=== PATIENT | male | born 1975 | race Caucasian/White ===

== ENCOUNTER 2017-07-16 11:28 | Inpatient (IN) | payer OTHER ==
[2017-07-16 13:07] VITALS: BMI 33.0
--- NOTE | 2017-07-16 13:18 | HP ---
Admission [facility] - [facility] Chief Complaint: I AM HERE FOR REHAB FROM ALCOHOL,HEROIN ABUSED,MMTP 80 MGS/DAY,LAST MEDICATED Allergies/Adverse Reactions: Allergies Allergy/AdvReac Type Severity Reaction Status Date / Time No Known Allergies Allergy Verified 07/16/17 13:03 History of Present Illness: THIS 41 YEARS OLD MALE WITH ALCOHOL,COCAINE DEPENDENCE,HEROIN ABUSED,MMTP 80 MGS /DAY LAST MEDICATED 07/15/17 NICOTINE DEPENDENCE LAST TREATMENT [facility] FROM 07/10/17 TO 07/13/17 NO SIGNIFICANT PERIOD OF SOBRIETY DEPRESSION,INSOMNIA Exam Limitations: No Limitations - Ebola screening Have you traveled outside of the country in the last 21 days: No (N) Have you had contact with anyone from an Ebola affected area: No Have you been sick,other than usual withdrawal symptoms: No Do you have a fever: No - Review of Systems Constitutional: No Symptoms Reported EENT: reports: No Symptoms Reported Respiratory: reports: No Symptoms reported Cardiac: reports: No Symptoms Reported GI: reports: No Symptoms Reported : reports: No Symptoms Reported Musculoskeletal: reports: No Symptoms Reported Integumentary: reports: No Symptoms Reported Neuro: reports: No Symptoms reported Endocrine: reports: No Symptoms Reported Hematology: reports: No Symptoms Reported Psychiatric: reports: Depressed (INSOMNIA) Patient History - Patient Medical History Hx Anemia: No Hx Asthma: No Hx Chronic Obstructive Pulmonary Disease (COPD): No Hx Cancer: No Hx Cardiac Disorders: No Hx Congestive Heart Failure: No Hx Hypertension: Yes (NO MED) Hx Hypercholesterolemia: No Hx Pacemaker: No HX Cerebrovascular Accident: No Hx Seizures: No Hx Dementia: No Hx Diabetes: No Hx Gastrointestinal Disorders: No Hx Liver Disease: No Hx Genitourinary Disorders: No Hx Sexually Transmitted Disorders: No Hx Renal Disease (ESRD): No Hx Thyroid Disease: No Hx Human Immunodeficiency Virus (HIV): No (LAST 2017 NEGATIVE) Hx Hepatitis C: No Hx Depression: Yes (INSOMNIA) Hx Suicide Attempt: No Hx Bipolar Disorder: No Hx Schizophrenia: No Other Medical History: NO SCICIDAL,NO HOMICIDAL - Patient Surgical History Past Surgical History: No - Smoking Cessation Smoking history: Current every day smoker Have you smoked in the past 12 months: Yes Aproximately how many cigarettes per day: 10 Cigars Per Day: 0 Hx Chewing Tobacco Use: No Initiated information on smoking cessation: Yes 'Breaking Loose' booklet given: 07/16/17 - Substance & Tx. History Hx Alcohol Use: Yes Hx Substance Use: Yes Substance Use Type: Alcohol, Cocaine, Heroin Hx Substance Use Treatment: Yes ([facility] 07/10/17 TO 07/13/17) - Substances Abused Heroin Route: Injection Frequency: Daily Amount used: 10 BAGS Age of first use: 18 Date of Last Use: 07/10/17 Cocaine Route: Injection Frequency: Daily Amount used: 1-2 GRAM Age of first use: 18 Date of Last Use: 07/10/17 Alcohol Route: Oral Frequency: 3-6 times per week Amount used: 2 6PKS Age of first use: 18 Date of Last Use: 07/10/17 Family Disease History - Family Disease History Family History: Denies Family Disease History: Diabetes: Mother Admission Physical Exam [facility] - Vital Signs Vital Signs: Vital Signs - 24 hr 07/16/17 13:06 Temperature 96.4 F L Pulse Rate 76 Respiratory 20 Rate Blood Pressure 155/94 - Physical General Appearance: Yes: Within Normal Limits HEENTM: Yes: Within Normal Limits, Normal ENT Inspection, Normocephalic, IVANA, Pharynx Normal, Tm's normal Respiratory: Yes: Lungs Clear, Normal Breath Sounds, No Respiratory Distress Neck: Yes: Within Normal Limits, Supple, Trachea in good position Breast: Yes: Within Normal Limits Cardiology: Yes: Within Normal Limits, Regular Rhythm, Regular Rate, S1, S2 Abdominal: Yes: Within Normal Limits, Normal Bowel Sounds, Non Tender, Soft Genitourinary: Yes: Within Normal Limits Back: Yes: Within Normal Limits Musculoskeletal: Yes: Within Normal Limits, full range of Motion Extremities: Yes: Within Normal Limits, Normal Range of Motion, Tremors Neurological: Yes: directory clerk II-XII NML intact, Fully Oriented, Alert, Motor Strength 5/5 Integumentary: Yes: Within Normal Limits Lymphatic: Yes: Within Normal Limits - Diagnostic (1) Alcohol dependence Current Visit: Yes Status: Acute (2) Opioid dependence Current Visit: Yes Status: Acute (3) Cocaine dependence Current Visit: Yes Status: Acute (4) Methadone maintenance therapy patient Current Visit: Yes Status: Acute (5) Depression Current Visit: Yes Status: Acute (6) Insomnia Current Visit: Yes Status: Acute (7) Nicotine dependence Current Visit: Yes Status: Acute Cleared for Admission [facility] - Detox or Rehab Claeared for Rehab Admission: Yes [facility] Breath Alcohol Content Breath Alcohol Content: 0 Urine Drug Screen - Results Drug Screen Negative: No Urine Drug Screen Results: BZO-Benzodiazepines, MTD-Methadone Inpatient Rehab Admission - Initial Determination Are CD services needed?: Yes Free of communicable disease: Yes Not in need of hospitalization: Yes - Rehab Admission Criteria Previous failed treatment: Yes Poor recovery environment: Yes Comorbidities: Yes Lacks judgement: No Patient is meeting Inpatient Rehab admission criteria:: Yes
[2017-07-16] MEDS ORDERED: guaiFENesin/D-METHORPHAN HB 10 ML UNIT-DOSE CUPS PO PRN (13:29)
[2017-07-16] MEDS ORDERED: LOPERAMIDE HCL 2 MG CAPSULE PO PRN (13:29)
[2017-07-16] MEDS ORDERED: MAGNESIUM CITRATE 300 ML BOTTLE PO PRN (13:29)
[2017-07-16] MEDS ORDERED: P-EPHED 60MG/TRIPROLIDI 2.5MG TABLET PO PRN (13:29)
[2017-07-16] MEDS ORDERED: MAG HYDROX/AL HYDROX/SIMETH 30 ML UNIT-DOSE CUP PO PRN (13:29)
[2017-07-16] MEDS ORDERED: IBUPROFEN 400 MG TABLET (FP) PO PRN (13:29)
[2017-07-16] MEDS ORDERED: ACETAMINOPHEN 325 MG TABLET (FP) PO PRN (13:29)
[2017-07-16] MEDS ORDERED: MENTHOL/PHENOL 1 EACH UD MM PRN (13:29)
[2017-07-16] MEDS: METHADONE HCL 40 MG DISPERSABLE TABLET PO SCH (16:12)
[2017-07-16] MEDS: NICOTINE 21 MG/24 HOURS TOPICAL PATCH TD SCH (16:12)
[2017-07-16] MEDS ORDERED: TUBERCULIN PPD 5 TU/0.1ML VIAL ID ONE ×2 (16:17→19:52)
[2017-07-16 17:03] LABS: HEMATOCRIT 46.5 % (35.4-49); HEMOGLOBIN 15.9 GM/dL (11.7-16.9); MCH 30.4 pg (25.7-33.7); MCHC 34.1 g/dl (32.0-35.9); MEAN CELL VOLUME 89.2 fl (80-96); MEAN PLT VOLUME 9.5 fl (7.5-11.1); PLATELET COUNT 184 K/MM3 (134-434); RBC 5.21 M/mm3 (4.00-5.60); RDW 14.1 % (11.9-15.9)
[2017-07-16 17:23] LABS: CHLORIDE 101 mmol/L (98-107); POTASSIUM 3.8 mmol/L (3.5-5.1); SODIUM 136 mmol/L (136-145)
[2017-07-16 17:35] LABS: ALBUMIN 3.9 g/dl (3.4-5.0); ALK PHOS 63 U/L (45-117); ANION GAP 11 (8-16); BILIRUBIN,TOTAL 0.9 mg/dL (0.2-1.0); BLOOD UREA NITROGEN 19 mg/dL (7-18); CALCIUM 8.8 mg/dL (8.5-10.1); CO2 24 mmol/L (21-32); CREATININE 0.9 mg/dL (0.7-1.3); SGOT/AST 222 U/L (15-37); SGPT/ALT 124 U/L (12-78); TOT PROT 7.3 g/dl (6.4-8.2)
[2017-07-16 18:19] LABS: SICKLE CELL SCREEN NEGATIVE (NEGATIVE)
[2017-07-16] MEDS: hydrOXYzine PAMOATE 50 MG CAPSULE (FP) PO PRN (21:05)
[2017-07-16] MEDS: THIAMINE HCL 100 MG TABLET (FP) PO SCH (21:05)
[2017-07-16 21:07] LABS: URINE APPEARANCE CLEAR; URINE BILIRUBIN NEGATIVE (NEGATIVE); URINE BLOOD NEGATIVE (NEGATIVE); URINE COLOR YELLOW; URINE GLUCOSE (UA) NEGATIVE (NEGATIVE); URINE KETONE NEGATIVE (NEGATIVE); URINE LEUK ESTERASE NEGATIVE (NEGATIVE); URINE NITRITE NEGATIVE (NEGATIVE); URINE PROTEIN NEGATIVE (NEGATIVE); URINE UROBILINOGEN NEGATIVE mg/dL (0.2-1.0)
[2017-07-17] MEDS: METHADONE HCL 40 MG DISPERSABLE TABLET PO SCH (06:39)
--- NOTE | 2017-07-17 08:42 | EKG ---
Test Reason : Blood Pressure : / mmHG Vent. Rate : 081 BPM Atrial Rate : 081 BPM P-R Int : 152 ms QRS Dur : 090 ms QT Int : 400 ms P-R-T Axes : 060 005 007 degrees QTc Int : 464 ms NORMAL SINUS RHYTHM MINIMAL VOLTAGE CRITERIA FOR LVH, MAY BE NORMAL VARIANT BORDERLINE ECG NO PREVIOUS ECGS AVAILABLE Confirmed by SEVEN OMALLEY MD ([id number]) on 07/17/2017 8:42:44 AM Referred By: Confirmed By:SEVEN OMALLEY MD
--- NOTE | 2017-07-17 09:18 | HP ---
Psychiatrist Admission - Data Date of interview: 07/17/17 Admission source: Outreach Identifying data: This is the first [facility] admission for this 41 years old single male, father of a 21 years old daughter, unemployed on SSI, living with family Medical History: Significant for hypertension. Patient is on methadone 80mg/ day. Smokes 10 cigarettes daily Psychiatric History: Reports that his first psychiatric contact was at age 16 when he was observed for 3 days at [facility] ED for suicidal attempt by cutting his wrist in the context of a romantic relationship(break up with a girlfriend). In late 2008, he was evaluated for depression and hearing voices at [facility] in [place], [place]. He was then diagnosed with MDD and started on Zoloft. He is still attending that clinic in [place] and he is currently on Zoloft 100 mg po daily and Perphenazine 8 mg po BID. He also claims being on Ambien but pharmacy claim did not bear that. Denies history of previous psychiatric hospitalization or suicidal attempt. at present, denies feeling experiencing psychotic, manic or depressive symptoms as well as S/H ideations. However, reports sleeping poorly and he appreciates the fact he is given Vistaril for his insomnia Physical/Sexual Abuse/Trauma History: Denies history of emotional, physical or sexual abuse as well as DV relationship. No service Additional Comment: Reports history of multiple arrests including 4 felony convictions. Not on probation/parole currently. Claims his parole in 2009. No active case pending Vital Signs: Vital Signs - 24 hr 07/16/17 07/16/17 07/17/17 13:06 16:05 00:35 Temperature 96.4 F L 98.0 F Pulse Rate 76 81 Respiratory 20 20 18 Rate Blood Pressure 155/94 128/84 07/17/17 07/17/17 03:30 06:47 Temperature 98.6 F Pulse Rate 62 Respiratory 18 18 Rate Blood Pressure 127/86 Allergies/Adverse Reactions: Allergies Allergy/AdvReac Type Severity Reaction Status Date / Time No Known Allergies Allergy Verified 07/16/17 13:03 Date of last physical exam: 07/16/17 Concur with the findings of this exam: Yes (Currently atteds [facility]) - Substance Abuse/Tx History Hx Alcohol Use: Yes Hx Substance Use: Yes Substance Use Type: Alcohol (Started drinking alcohol at age 18, consumes 2x 6pk 3-6 times weekly. Last drank on 07/10/17), Cocaine (Started using cocaine at age 18, consumes 1-2 grams daily. Last used on 07/10/17), Heroin (Started using herin at age 18, consumes 10 bags daily. Last used on 07/10/17) Hx Substance Use Treatment: Yes (3 previous inpt detox & one inpt rehab admissions. 1st inpt treatment @ [facility]) Mental Status Exam - Mental Status Exam Alert and Oriented to: Time, Place, Person Cognitive Function: Fair Patient Appearance: Well Groomed Mood: Hopeful, Euthymic Patient Behavior: Cooperative Speech Pattern: Clear Voice Loudness: Normal Thought Process: Intact, Goal Oriented Hallucinations: None, Denies Suicidal Ideation: Denies Homicidal Ideation: Denies Insight/Judgement: Fair Sleep: Poorly Appetite: Good Muscle strength/Tone: Normal Gait/Station: Normal Psychiatric Findings - Problem List (Wells 1, 2,3) (1) Alcohol dependence Current Visit: Yes Status: Acute (2) Opioid dependence Current Visit: Yes Status: Acute (3) Cocaine dependence Current Visit: Yes Status: Acute (4) Opioid dependence on agonist therapy Current Visit: Yes Status: Chronic (5) Nicotine dependence Current Visit: Yes Status: Chronic (6) Severe episode of recurrent major depressive disorder, with psychotic features Current Visit: Yes Status: Chronic (7) Substance induced mood disorder Current Visit: Yes Status: Acute (8) HTN (hypertension) Current Visit: Yes Status: Chronic - Initial Treatment Plan Initial Treatment Plan: 1) Continue Zoloft 100 mg po daily and Trilafon 8 mg po BID. 2) Monitor progress
[2017-07-17] MEDS: PRENATAL VITAMINS W/ FOLIC ACID TABLET (FP) PO SCH (09:54)
[2017-07-17] MEDS: hydrOXYzine PAMOATE 50 MG CAPSULE (FP) PO PRN (09:55)
[2017-07-17] MEDS: NICOTINE 21 MG/24 HOURS TOPICAL PATCH TD SCH (09:55)
[2017-07-17] MEDS: SERTRALINE HCL 50 MG TABLET (FP) PO SCH (10:49)
[2017-07-17] MEDS: PERPHENAZINE 4 MG TABLET PO SCH ×2 (10:50→21:09)
[2017-07-17] MEDS ORDERED: PNEUMOCOCCAL 23 VACCINE 0.5 ML VIAL IM ONE (12:00)
[2017-07-17] MEDS ORDERED: PNEUMOC 13-VAL CONJ-DIP CRM/PF 0.5 ML DISP.SYRIN IM ONE (12:00)
[2017-07-17] MEDS ORDERED: FLU VACCINE QUAD 60 MCG/0.5 ML (MDV 17-18) IM ONE (12:00)
--- NOTE | 2017-07-17 17:12 | PN ---
S Progress Note Note: Patient c/o dry skin on both feet. Vital Signs Temperature 98.6 F 07/17/17 06:47 Pulse Rate 62 07/17/17 06:47 Respiratory Rate 18 07/17/17 06:47 Blood Pressure 127/86 07/17/17 06:47 O2 Sat by Pulse Oximetry (%) Patient AOx 3 in no parent distress Skin integrity intact with moderate dryness on both feet, nails intact negative neuro symptoms Patient ambulating in the unit without difficulties Plan: increase fluids Aveno soap Skin hygiene discuss Apply A & D oint to both feet
[2017-07-17] MEDS: VITAMINS A AND D TOPICAL OINTMENT 60 GM TUBE TP SCH (18:02)
[2017-07-17] MEDS: THIAMINE HCL 100 MG TABLET (FP) PO SCH (21:09)
[2017-07-17 21:32] LABS: ALBUMIN 3.8 g/dl (3.4-5.0); ANION GAP 5 (8-16); BILIRUBIN,TOTAL 0.3 mg/dL (0.2-1.0); BLOOD UREA NITROGEN 12 mg/dL (7-18); CALCIUM 8.3 mg/dL (8.5-10.1); CHLORIDE 106 mmol/L (98-107); CO2 30 mmol/L (21-32); CREATININE 0.9 mg/dL (0.7-1.3); GLUCOSE,RANDOM 130 mg/dL (74-106); SGOT/AST 40 U/L (15-37); SGPT/ALT 31 U/L (12-78); SODIUM 141 mmol/L (136-145); TOT PROT 7.2 g/dl (6.4-8.2)
[2017-07-17 21:33] LABS: ALK PHOS 69 U/L (45-117)
[2017-07-17 22:04] LABS: SICKLE CELL SCREEN NEGATIVE (NEGATIVE)
[2017-07-17 22:06] LABS: HEMATOCRIT 41.3 % (35.4-49); HEMOGLOBIN 13.6 GM/dL (11.7-16.9); MCH 31.8 pg (25.7-33.7); MCHC 32.9 g/dl (32.0-35.9); MEAN CELL VOLUME 96.6 fl (80-96); MEAN PLT VOLUME 10.2 fl (7.5-11.1); PLATELET COUNT 165 K/MM3 (134-434); RBC 4.27 M/mm3 (4.00-5.60); WHITE BLOOD COUNT 5.4 K/mm3 (4.0-10.0)
[2017-07-17 22:29] LABS: GLUCOSE,RANDOM 106 mg/dL (74-106)
[2017-07-17 22:33] LABS: WHITE BLOOD COUNT 9.4 K/mm3 (4.0-10.0)
--- NOTE | 2017-07-17 22:49 | PN ---
[facility] Progress Note Note: informed by lab grounds crew supervisor brianna HIV STATUS STILL PENDING DUE TO WRONG SPECIMEN PROCESSED. CURRENT RESULTS IS AN ERROR. HIV TESTING RESUBMITTED
[2017-07-18] MEDS: VITAMINS A AND D TOPICAL OINTMENT 60 GM TUBE TP SCH ×4 (00:08→18:00)
[2017-07-18] MEDS ORDERED: PT OWN MED DRAWER 7, Y5N ONE (02:10)
[2017-07-18] MEDS: METHADONE HCL 40 MG DISPERSABLE TABLET PO SCH (06:22)
[2017-07-18] MEDS: PRENATAL VITAMINS W/ FOLIC ACID TABLET (FP) PO SCH (09:31)
[2017-07-18] MEDS: PERPHENAZINE 4 MG TABLET PO SCH ×2 (09:31→21:07)
[2017-07-18] MEDS: SERTRALINE HCL 50 MG TABLET (FP) PO SCH (09:31)
[2017-07-18] MEDS: NICOTINE 21 MG/24 HOURS TOPICAL PATCH TD SCH (09:32)
[2017-07-18 09:57] LABS: RPR NONREACTIVE (NONREACTIVE)
[2017-07-18] MEDS: THIAMINE HCL 100 MG TABLET (FP) PO SCH (21:07)
[2017-07-19] MEDS: VITAMINS A AND D TOPICAL OINTMENT 60 GM TUBE TP SCH ×4 (00:21→17:27)
[2017-07-19] MEDS: METHADONE HCL 40 MG DISPERSABLE TABLET PO SCH (06:37)
[2017-07-19] MEDS: SERTRALINE HCL 50 MG TABLET (FP) PO SCH (09:37)
[2017-07-19] MEDS: NICOTINE 21 MG/24 HOURS TOPICAL PATCH TD SCH (09:37)
[2017-07-19] MEDS: PERPHENAZINE 4 MG TABLET PO SCH ×2 (09:37→21:06)
[2017-07-19] MEDS: PRENATAL VITAMINS W/ FOLIC ACID TABLET (FP) PO SCH (09:37)
--- NOTE | 2017-07-19 15:49 | PN ---
[facility] Progress Note Note: received nurse call that the patient has positive ppd needs chest x ray
[2017-07-19] MEDS: THIAMINE HCL 100 MG TABLET (FP) PO SCH (21:06)
[2017-07-20] MEDS: VITAMINS A AND D TOPICAL OINTMENT 60 GM TUBE TP SCH ×5 (00:06→23:12)
[2017-07-20] MEDS: METHADONE HCL 40 MG DISPERSABLE TABLET PO SCH (06:11)
[2017-07-20] MEDS: NICOTINE 21 MG/24 HOURS TOPICAL PATCH TD SCH (09:49)
[2017-07-20] MEDS: PRENATAL VITAMINS W/ FOLIC ACID TABLET (FP) PO SCH (09:50)
[2017-07-20] MEDS: SERTRALINE HCL 50 MG TABLET (FP) PO SCH (09:50)
[2017-07-20] MEDS: PERPHENAZINE 4 MG TABLET PO SCH ×2 (10:49→21:05)
[2017-07-20] MEDS: THIAMINE HCL 100 MG TABLET (FP) PO SCH (21:05)
[2017-07-21] MEDS: METHADONE HCL 40 MG DISPERSABLE TABLET PO SCH (06:15)
[2017-07-21] MEDS: VITAMINS A AND D TOPICAL OINTMENT 60 GM TUBE TP SCH ×3 (06:15→17:38)
[2017-07-21] MEDS: NICOTINE 21 MG/24 HOURS TOPICAL PATCH TD SCH (09:45)
[2017-07-21] MEDS: SERTRALINE HCL 50 MG TABLET (FP) PO SCH (09:45)
[2017-07-21] MEDS: PERPHENAZINE 4 MG TABLET PO SCH ×2 (09:45→21:11)
[2017-07-21] MEDS: PRENATAL VITAMINS W/ FOLIC ACID TABLET (FP) PO SCH (09:45)
--- NOTE | 2017-07-21 13:43 | PN ---
[facility] Progress Note Note: CXR neg active tb
[2017-07-21] MEDS: THIAMINE HCL 100 MG TABLET (FP) PO SCH (21:11)
[2017-07-22] MEDS: VITAMINS A AND D TOPICAL OINTMENT 60 GM TUBE TP SCH ×4 (00:01→17:59)
[2017-07-22] MEDS: METHADONE HCL 40 MG DISPERSABLE TABLET PO SCH (06:19)
[2017-07-22] MEDS: NICOTINE 21 MG/24 HOURS TOPICAL PATCH TD SCH (09:37)
[2017-07-22] MEDS: SERTRALINE HCL 50 MG TABLET (FP) PO SCH (09:37)
[2017-07-22] MEDS: PERPHENAZINE 4 MG TABLET PO SCH ×2 (09:38→21:07)
[2017-07-22] MEDS: PRENATAL VITAMINS W/ FOLIC ACID TABLET (FP) PO SCH (09:38)
[2017-07-22] MEDS: THIAMINE HCL 100 MG TABLET (FP) PO SCH (21:07)
[2017-07-23] MEDS: VITAMINS A AND D TOPICAL OINTMENT 60 GM TUBE TP SCH ×4 (00:45→17:37)
[2017-07-23] MEDS: METHADONE HCL 40 MG DISPERSABLE TABLET PO SCH (06:14)
[2017-07-23] MEDS: SERTRALINE HCL 50 MG TABLET (FP) PO SCH (10:12)
[2017-07-23] MEDS: PRENATAL VITAMINS W/ FOLIC ACID TABLET (FP) PO SCH (10:12)
[2017-07-23] MEDS: NICOTINE 21 MG/24 HOURS TOPICAL PATCH TD SCH (10:12)
[2017-07-23] MEDS: PERPHENAZINE 4 MG TABLET PO SCH ×2 (10:12→21:15)
[2017-07-23] MEDS: THIAMINE HCL 100 MG TABLET (FP) PO SCH (21:15)
[2017-07-24] MEDS: VITAMINS A AND D TOPICAL OINTMENT 60 GM TUBE TP SCH ×5 (00:13→23:52)
[2017-07-24] MEDS: METHADONE HCL 40 MG DISPERSABLE TABLET PO SCH (06:12)
[2017-07-24] MEDS: PERPHENAZINE 4 MG TABLET PO SCH ×2 (09:36→21:11)
[2017-07-24] MEDS: NICOTINE 21 MG/24 HOURS TOPICAL PATCH TD SCH (09:36)
[2017-07-24] MEDS: SERTRALINE HCL 50 MG TABLET (FP) PO SCH (09:37)
[2017-07-24] MEDS: PRENATAL VITAMINS W/ FOLIC ACID TABLET (FP) PO SCH (09:37)
[2017-07-24] MEDS ORDERED: POLYETHYLENE GLYCOL 3350 119 GM BTL PO ONE (15:00)
[2017-07-24] MEDS: THIAMINE HCL 100 MG TABLET (FP) PO SCH (21:11)
[2017-07-25] MEDS: METHADONE HCL 40 MG DISPERSABLE TABLET PO SCH (06:25)
[2017-07-25] MEDS: VITAMINS A AND D TOPICAL OINTMENT 60 GM TUBE TP SCH ×3 (06:27→18:00)
[2017-07-25] MEDS: PRENATAL VITAMINS W/ FOLIC ACID TABLET (FP) PO SCH (09:40)
[2017-07-25] MEDS: NICOTINE 21 MG/24 HOURS TOPICAL PATCH TD SCH (09:40)
[2017-07-25] MEDS: SERTRALINE HCL 50 MG TABLET (FP) PO SCH (09:40)
[2017-07-25] MEDS: PERPHENAZINE 4 MG TABLET PO SCH ×2 (09:40→21:13)
[2017-07-25] MEDS: POLYETHYLENE GLYCOL 3350 119 GM BTL PO SCH (09:41)
[2017-07-25] MEDS: MAGNESIUM HYDROX 2400MG/30ML ORAL SUSPENSION 30 ML CUP PO PRN (17:59)
[2017-07-25] MEDS: THIAMINE HCL 100 MG TABLET (FP) PO SCH (21:13)
[2017-07-26] MEDS: VITAMINS A AND D TOPICAL OINTMENT 60 GM TUBE TP SCH ×4 (00:50→17:32)
[2017-07-26] MEDS: METHADONE HCL 40 MG DISPERSABLE TABLET PO SCH (06:16)
[2017-07-26] MEDS: PRENATAL VITAMINS W/ FOLIC ACID TABLET (FP) PO SCH (09:50)
[2017-07-26] MEDS: NICOTINE 21 MG/24 HOURS TOPICAL PATCH TD SCH (09:51)
[2017-07-26] MEDS: SERTRALINE HCL 50 MG TABLET (FP) PO SCH (09:51)
[2017-07-26] MEDS: PERPHENAZINE 4 MG TABLET PO SCH ×2 (09:51→21:09)
[2017-07-26] MEDS: POLYETHYLENE GLYCOL 3350 119 GM BTL PO SCH (09:53)
[2017-07-26] MEDS: THIAMINE HCL 100 MG TABLET (FP) PO SCH (21:09)
[2017-07-27] MEDS: VITAMINS A AND D TOPICAL OINTMENT 60 GM TUBE TP SCH ×4 (01:02→19:01)
[2017-07-27] MEDS: METHADONE HCL 40 MG DISPERSABLE TABLET PO SCH (06:21)
[2017-07-27] MEDS: SERTRALINE HCL 50 MG TABLET (FP) PO SCH (09:44)
[2017-07-27] MEDS: PERPHENAZINE 4 MG TABLET PO SCH ×2 (09:45→21:25)
[2017-07-27] MEDS: PRENATAL VITAMINS W/ FOLIC ACID TABLET (FP) PO SCH (09:45)
[2017-07-27] MEDS: POLYETHYLENE GLYCOL 3350 119 GM BTL PO SCH (09:45)
[2017-07-27] MEDS: NICOTINE 21 MG/24 HOURS TOPICAL PATCH TD SCH (09:45)
[2017-07-27] MEDS: THIAMINE HCL 100 MG TABLET (FP) PO SCH (21:25)
[2017-07-28] MEDS: VITAMINS A AND D TOPICAL OINTMENT 60 GM TUBE TP SCH ×4 (00:40→18:23)
[2017-07-28] MEDS: METHADONE HCL 40 MG DISPERSABLE TABLET PO SCH (06:02)
[2017-07-28] MEDS: MAGNESIUM HYDROX 2400MG/30ML ORAL SUSPENSION 30 ML CUP PO PRN (08:30)
[2017-07-28] MEDS: PERPHENAZINE 4 MG TABLET PO SCH ×2 (09:57→21:06)
[2017-07-28] MEDS: PRENATAL VITAMINS W/ FOLIC ACID TABLET (FP) PO SCH (09:57)
[2017-07-28] MEDS: SERTRALINE HCL 50 MG TABLET (FP) PO SCH (09:57)
[2017-07-28] MEDS: NICOTINE 21 MG/24 HOURS TOPICAL PATCH TD SCH (09:57)
[2017-07-28] MEDS: POLYETHYLENE GLYCOL 3350 119 GM BTL PO SCH (09:59)
[2017-07-28] MEDS: THIAMINE HCL 100 MG TABLET (FP) PO SCH (21:06)
[2017-07-29] MEDS: VITAMINS A AND D TOPICAL OINTMENT 60 GM TUBE TP SCH ×2 (01:20→06:37)
[2017-07-29] MEDS: METHADONE HCL 40 MG DISPERSABLE TABLET PO SCH (06:36)
[2017-07-29 06:43] VITALS: BP 113/74; PULSE 69; TEMP 98
[2017-07-29] MEDS: PRENATAL VITAMINS W/ FOLIC ACID TABLET (FP) PO SCH (09:50)
[2017-07-29] MEDS: PERPHENAZINE 4 MG TABLET PO SCH (09:50)
[2017-07-29] MEDS: SERTRALINE HCL 50 MG TABLET (FP) PO SCH (09:51)
[2017-07-29] MEDS: POLYETHYLENE GLYCOL 3350 119 GM BTL PO SCH (09:51)
[2017-07-29] MEDS: NICOTINE 21 MG/24 HOURS TOPICAL PATCH TD SCH (09:51)
--- NOTE | 2017-07-29 10:37 | PN ---
Psychiatric Progress Note Vital Signs: Vital Signs Period Temp Pulse Resp BP Sys/Bright Pulse Ox Last 24 Hr 98.0 F 69 18-18 113/74 Date of Session: 07/29/17 Chief Complaint:: discharge visit HPI: Patient has addressed alcohol, opioid, cocaine, nicotine dependence comorbid MDD, severe with psychosis. ROS: Hypertension medically managed. Patient is on methadone 80mg/day Current Medications: Active Medications Generic Name Dose Route Start Last Admin Trade Name Freq PRN Reason Stop Dose Admin Al Hydroxide/Mg Hydroxide 30 ml 07/16/17 13:29 Mylanta Oral Suspension - PO Q6H PRN DYSPEPSIA Eucalyptus/Menthol/Phenol/Sorbitol 1 each 07/16/17 13:29 Cepastat Lozenge - MM Q4H PRN SORE THROAT Guaifenesin 10 ml 07/16/17 13:29 Robitussin Dm - PO Q6H PRN COUGH Hydroxyzine Pamoate 50 mg 07/16/17 13:29 07/17/17 09:55 Vistaril - PO 50 mg Q4H PRN Administration AGITATION Ibuprofen 400 mg 07/16/17 13:29 Motrin - PO Q6H PRN Pain level 4-6 Magnesium Citrate 300 ml 07/16/17 13:29 Citroma - PO Q48H PRN CONSTIPATION Magnesium Hydroxide 30 ml 07/16/17 13:29 07/28/17 08:30 Milk Of Magnesia - PO 30 ml DAILY PRN Administration CONSTIPATION Methadone HCl 80 mg 07/24/17 06:00 07/29/17 06:36 Dolophine - PO 80 mg DAILY@0600 MITCH Administration Nicotine 21 mg 07/16/17 14:05 07/29/17 09:51 Nicoderm Patch - TD Not Given DAILY MITCH Perphenazine 8 mg 07/17/17 10:30 07/29/17 09:50 Trilafon PO 8 mg BID MITCH Administration Polyethylene Glycol 17 gm 07/25/17 10:00 07/29/17 09:51 Miralax (For Daily Use) - PO Not Given DAILY MITCH Multivit/Folic Acid/Iron 1 tab 07/17/17 10:00 07/29/17 09:50 Vitamins (Sjr) - PO 1 tab DAILY MITCH Administration Pseudoephedrine/Triprolidine 1 combo 07/16/17 13:29 Actifed - PO TID PRN NASAL CONGESTION Sertraline HCl 100 mg 07/17/17 10:30 07/29/17 09:51 Zoloft - PO 100 mg DAILY MITCH Administration Thiamine HCl 100 mg 07/16/17 22:00 07/28/17 21:06 Vitamin B1 - PO 100 mg HS MITCH Administration Vitamin A/Vitamin D 1 applic 07/17/17 18:00 07/29/17 06:37 Vitamin A & D Top Oint - TP Not Given Q6HPO MITCH Current Side Effect: No Lab tests ordered: No Lab tests reviewed: Yes Provider note:: Patient has completed today this program and met his identified goals, will continue to address his issues at [facility]. He gained insights into importance of changing attitudes and utilization of supports to prevent relapses. Trilafon and Zoloft well tolerated , scripts provided , patient is stable for discharge today. Patient will f/u by his psychaitrsi . Total face to face time:: 20 Mental Status Exam - Mental Status Exam Alert and Oriented to: Time, Place, Person Cognitive Function: Good Patient Appearance: Well Groomed Mood: Hopeful Affect: Appropriate, Mood Congruent Patient Behavior: Appropriate, Cooperative Speech Pattern: Clear, Appropriate Voice Loudness: Normal Thought Process: Intact, Goal Oriented Thought Disorder: Not Present Hallucinations: Denies Suicidal Ideation: Denies Homicidal Ideation: Denies Insight/Judgement: Fair Sleep: Fair Appetite: Good Muscle strength/Tone: Normal Gait/Station: Normal
== END 2017-07-29 11:10 | disposition home or self-care (01) | DRG 772 ==
LOC: YASAS 11:28 → Y5N 13:46
PROVIDERS: ADMIT Psychiatry & Neurology Psychiatry; ATTEND Psychiatry & Neurology Psychiatry
PROC: HZ42ZZZ Group Counseling for Substance Abuse Treatment, Cognitive-Behavioral (ICD-10-PCS; principal; 2017-07-16)
DX: F11.20 Opioid dependence, uncomplicated (principal); F10.20 Alcohol dependence, uncomplicated; F14.20 Cocaine dependence, uncomplicated; F17.210 Nicotine dependence, cigarettes, uncomplicated; F33.3 Major depressive disorder, recurrent, severe with psychotic symptoms; F19.24 Other psychoactive substance dependence with psychoactive substance-induced mood disorder; I10 Essential (primary) hypertension
CPT/HCPCS: 36415; 71046-TC-FY; 80053; 81003; 85027; 85660; 86593; 87389; 90688; 90732; 93005; 93010; G0008; G0009